=== PATIENT | male | born 1970 | race Caucasian/White ===

== ENCOUNTER 2016-10-17 16:17 | Emergency (ER) | payer MEDICAID ==
[2016-10-17 16:47] VITALS: BP 108/70; PULSE 81; RESP 18; TEMP 97.5; O2SAT 92
--- NOTE | 2016-10-17 17:10 | EDPHY ---
H & P Stated Complaint: "im impacted" HPI/ROS: CHIEF COMPLAINT: constipation. Fecal impaction. HISTORY OF PRESENT ILLNESS: One-day of constipation and fecal impaction. He feels that he has stool in the rectal vault but cannot get it out. He has had this in the past year x2. He has no fever or chills. No generalized abdominal pain. No nausea or vomiting. Symptoms were severe enough that he attempted his own digital disimpaction earlier today with minimal results. He feels it is related to taking OxyContin for back pain recently. At time of my examination, he says that he actually had a large bowel movement just after checking in, and has no further complaints. He has no pain at this time. Has no urge to have a bowel movement. He has no nausea or vomiting. He does not want any further workup for examination. He is asking to be discharged home. No other associated complaints or modifying factors past PREVIOUS ABDOMINAL SURGERIES/DIAGNOSES: constipation REVIEW OF SYSTEMS: Ten systems reviewed and are negative unless otherwise noted in the HPI EXAMINATION: General Appearance: Alert, no distress the Head: normocephalic, atraumatic Eyes: Pupils equal and round, no conjunctival pallor or injection ENT, Mouth: Mucous membranes moist Neck: Normal inspection, supple, non-tender Respiratory: no distress or retraction Gastrointestinal: obese. Abdomen is soft and nontender. No tympany. No rigidity. Non-acute abdomen. Back: non-tender, no bony abnormalities Neurological: A&O, nonfocal Skin: Warm and dry, no rash Extremities: Nontender, no pedal edema Psychiatric: Mood and affect normal DIFFERENTIAL DIAGNOSES: Including but not limited to Constipation, fecal impaction, opiate related constipation, chronic pain MDM: 5:00 p.m. constipation with possible fecal impaction that has resolved prior to my examination. Likely stems from his OxyContin use for his chronic pain from his back. He has no complaints of any kind at this time. He did note that he had some blood in the stool after the constipation, but denies any recent bloody stools in general. I informed him that he should return to the ER for any ongoing blood in the stools. Also recommend Mag citrate as we discussed. I also recommend daily Colace or senna for stool softening. follow-up with primary care physician and we will provide GI follow-up for him should he wish to pursue that. Patient is comfortable this plan and discharged home in stable condition ED Precautions: Worsening pain. Fever. Bloody stools. Bloody emesis. Constipation or diarrhea. SUPERVISION: This patient was independently evaluated without the aide of supervising physician. Source: Patient Exam Limitations: No limitations - Personal History Current Tetanus/Diphtheria Vaccine: Unsure Current Tetanus Diphtheria and Acellular Pertussis (TDAP): Unsure - Medical/Surgical History Hx Asthma: No Hx Chronic Respiratory Disease: No Hx Diabetes: Yes Hx Cardiac Disease: Yes Hx Renal Disease: No Hx Cirrhosis: No Hx Alcoholism: No Hx HIV/AIDS: No Hx Splenectomy or Spleen Trauma: No Other PMH: Carpel tunnel surgery 16 Nov, NIDDM, HTN, depression, anxiety, spinal stenosis, neuropathy, Partially Homeless. - Social History Smoking Status: Never smoked Constitutional: Initial Vital Signs Temperature (C) 97.5 F 10/17/16 16:46 Heart Rate 81 10/17/16 16:46 Respiratory Rate 18 10/17/16 16:46 Blood Pressure 108/70 10/17/16 16:46 O2 Sat (%) 92 10/17/16 16:46 O2 Delivery Mode Room Air Allergies/Adverse Reactions: latex [Latex] Allergy (Mild, Verified 03/10/16 14:26) Home Medications: Medication Instructions Recorded Aspirin [Aspir 81] 81 mg PO DAILY 02/08/12 Atenolol [Tenormin 25 mg (RX)] 25 mg PO DAILY 02/08/12 Glipizide [Glipizide 5 mg (RX)] 5 mg PO DAILY 02/08/12 Lisinopril [Zestril 10 mg (RX)] 20 mg PO DAILY 02/08/12 Metformin HCl [Metformin HCl 1000 1,000 mg PO BID 02/08/12 mg] Sertraline HCl [Zoloft] 25 mg PO DAILY 02/08/12 clonAZEPAM [Klonopin] 0.5 mg PO DAILY 02/08/12 Oxycodone Ir 5 - 10 mg PO TID PRN 09/16/15 Levemir 25 units SQ BID 03/10/16 oxyCODONE IR [Oxycodone Ir (*)] 5 mg PO Q4-6PRN PRN #30 tab 08/30/16 Departure - Departure Disposition: Home, Routine, Self-Care Clinical Impression: Constipation Qualifiers: Qualifier Code: (K59.00) Constipation, unspecified Condition: Good Instructions: Irritable Bowel Syndrome (ED), Constipation (ED), High Fiber Diet (ED), Fleet Enema (ED) Additional Instructions: follow-up with primary care physician and/or GI specialist. Recommend 1 bottle of magnesium citrate tonight. They recommend repeat after 4 hours if no bowel movement and then recommend Colace [id number] daily as discussed. Return to the ER for worsening pain or constipation. Return to the ER for bleeding, fever, chills or generalized abdominal pain Referrals: Crystal Gamez MD [Primary Care Provider] - As per Instructions Ignacio Rhodes MD [Medical Doctor] - As per Instructions
== END 2016-10-17 17:17 | disposition home or self-care (01) ==
DX: K59.00 Constipation, unspecified (principal); I10 Essential (primary) hypertension; E11.9 Type 2 diabetes mellitus without complications; Z79.82 Long term (current) use of aspirin; Z91.040 Latex allergy status

== ENCOUNTER 2016-10-22 12:19 | Emergency (ER) | payer MEDICAID ==
[2016-10-22 12:28] VITALS: BP 140/99; PULSE 76; RESP 16; TEMP 97.7; O2SAT 92
--- NOTE | 2016-10-22 13:16 | EDPHY ---
H & P Stated Complaint: R thumb injury Time Seen by Provider: 10/22/16 13:08 HPI/ROS: CHIEF COMPLAINT: Right thumb tenderness HISTORY OF PRESENT ILLNESS: 46-year-old male presents emergency department complaining of right thumb pain. Patient was seen at [facility] yesterday, diagnosed with a felon, had it incised and drained. Patient is taking Bactrim, this morning was his 2nd dose. He was seen the day before that for paronychia in this same thumb and started on Keflex. He has stopped the Keflex and is only taking Bactrim per their recommendations. He had a follow-up appointment with them this morning, reports the pad of his thumb less tender though they were concerned of a tenosynovitis and sent him to the hospital for an MRI. Patient is an insulin-dependent diabetic. He denies fevers or chills, no nausea or vomiting. He is [id number]. REVIEW OF SYSTEMS: A comprehensive 10 point review of systems is otherwise negative aside from elements mentioned in the history of present illness. Source: Patient Exam Limitations: No limitations - Personal History Current Tetanus/Diphtheria Vaccine: Unsure Current Tetanus Diphtheria and Acellular Pertussis (TDAP): Unsure - Medical/Surgical History Hx Asthma: No Hx Chronic Respiratory Disease: No Hx Diabetes: Yes Hx Cardiac Disease: Yes Hx Renal Disease: No Hx Cirrhosis: No Hx Alcoholism: No Hx HIV/AIDS: No Hx Splenectomy or Spleen Trauma: No Other PMH: Carpel tunnel surgery 16 Nov, IDDM, HTN, depression, anxiety, spinal stenosis, neuropathy, Partially Homeless. - Social History Smoking Status: Never smoked - Physical Exam Exam: GEN: Awake, alert, oriented, no acute distress RESP: nl resp effort MSK: Right thumb with had of thumb palmar aspect with swelling and tenderness and erythema, incision to lateral thumb with no drainage, no Kanaval signs. Mild tenderness to palpation to dorsal aspect of MCP joint, no lymphangitic streaking, no wrist tenderness. Sensation intact to light touch, cap refill less than 2 seconds. Constitutional: Initial Vital Signs Temperature (C) 36.5 C 10/22/16 12:27 Heart Rate 76 10/22/16 12:27 Respiratory Rate 16 10/22/16 12:27 Blood Pressure 140/99 H 10/22/16 12:27 O2 Sat (%) 92 10/22/16 12:27 O2 Delivery Mode Room Air Allergies/Adverse Reactions: latex [Latex] Allergy (Mild, Verified 03/10/16 14:26) Home Medications: Medication Instructions Recorded Aspirin [Aspir 81] 81 mg PO DAILY 02/08/12 Atenolol [Tenormin 25 mg (RX)] 25 mg PO DAILY 02/08/12 Glipizide [Glipizide 5 mg (RX)] 5 mg PO DAILY 02/08/12 Lisinopril [Zestril 10 mg (RX)] 20 mg PO DAILY 02/08/12 Metformin HCl [Metformin HCl 1000 1,000 mg PO BID 02/08/12 mg] Sertraline HCl [Zoloft] 25 mg PO DAILY 02/08/12 clonAZEPAM [Klonopin] 0.5 mg PO DAILY 02/08/12 Oxycodone Ir 5 - 10 mg PO TID PRN 09/16/15 Levemir 25 units SQ BID 03/10/16 oxyCODONE IR [Oxycodone Ir (*)] 5 mg PO Q4-6PRN PRN #30 tab 08/30/16 Medical Decision Making - Diagnostics Imaging: MRI right thumb- Impression: Mild cellulitis distal thumb. No evidence for an abscess or osteomyelitis. Minimal peritendinitis of the extensor and flexor tendon, without tenosynovitis. Results called and discussed with Clayton PetersPMalvin, at October 22, 2016 at 1511 hours. Dictated By: Abilio Armando MD ED Course/Re-evaluation: 46-year-old male presents with a felon to his right thumb that had an incision and drainage yesterday. His primary care doctor sent him here for an MRI concern for tenosynovitis. Patient denies fevers or chills, no extending redness beyond tip of finger. MRI ordered shows no evidence of tenosynovitis, no abscess. I have recommended the patient soak this finger 5 times a day for 10 minutes, take his antibiotics as prescribed and follow up at [facility] for re-evaluation tomorrow. He is given strict return precautions for worsening symptoms. Differential Diagnosis: Diagnosis considered but not limited to felon, paronychia, tenosynovitis, septic joint Departure - Departure Disposition: Home, Routine, Self-Care Clinical Impression: Right thumb felon Condition: Good Instructions: Cellulitis (ED), Incision and Drainage (ED) Additional Instructions: Soak your right thumb in warm water 5 times a day for 5-10 minutes, continue taking your antibiotics as prescribed, follow up at [facility] tomorrow for wound recheck. Return to the emergency department for worsening symptoms, increased pain and swelling, spreading of redness, any other questions or concerns. Referrals: Crystal Gamez MD [Primary Care Provider] - As per Instructions
--- NOTE | 2016-10-22 15:23 | MR ---
MRI Upper Extremity, Right Thumb History: Abscess in pad of the thumb drained yesterday. Swelling. Evaluate for tenosynovitis. Technique: MRI was performed of the right hand, with attention to the right thumb, using a 3.0 Yasmin MRI system. Sagittal, coronal, and axial imaging was obtained with standard imaging sequences. Findings: Mild edema is seen in the pad of the distal thumb. Minimal peritendinous edema is seen of the extensor and flexor tendon of the thumb. No evidence for fluid distention of the tendon sheath. Mild abnormal signal intensity is seen in the flexor tendon more proximally at the level of the met acarpal, which could represent mild tendinopathy. No attenuation or edema. No evidence for an absce ss. No evidence for osteomyelitis. No evidence for a joint effusion. No significant bone marrow ab normality is visualized. Impression: Mild cellulitis distal thumb. No evidence for an abscess or osteomyelitis. Minimal per itendinitis of the extensor and flexor tendon, without tenosynovitis. Results called and discussed with Aurora Cronin N.P., at October 22, 2016 at 1511 hours.
== END 2016-10-22 15:29 | disposition home or self-care (01) ==
DX: L03.011 Cellulitis of right finger (principal); E11.9 Type 2 diabetes mellitus without complications; I10 Essential (primary) hypertension; Z91.040 Latex allergy status; Z79.82 Long term (current) use of aspirin

== ENCOUNTER 2016-12-15 16:25 | Emergency (ER) | payer MEDICAID ==
[2016-12-15 16:38] VITALS: RESP 18
--- NOTE | 2016-12-15 18:08 | EDPHY ---
H & P Time Seen by Provider: 12/15/16 17:53 HPI/ROS: CHIEF COMPLAINT: " [place] very warm" HISTORY OF PRESENT ILLNESS: This 46-year-old man usually sleeps in pretty late and woke up at 11:30 a.m. and took his usual medications including his diabetes medications. Of note he had esophageal dilatation about a year and half ago. He felt like the pills did not go down right away and got stuck but then finally passed. He went back to sleep but then around 3:00 p.m. he was sitting at his desk at a computer when he felt flushed sweaty and warm for about 10 or 15 minutes. Symptoms completely resolved, he called the [facility] nurse line, they advised him to come here for further evaluation. Of note he had some question about aspirating his medications but felt like they did eventually go down into his stomach and does not have at this time of foreign body sensation in his esophagus, has not been coughing, is not short of breath. No choking. REVIEW OF SYSTEMS: Eye: no change in vision ENT: no sore throat Cardiac: no chest pain or syncope Pulmonary: HPI Abdomen: no vomiting, diarrhea, abdominal pain Musculoskeletal: no back pain Skin: no rash Neuro: no headache Constitutional: HPI, no chills : no urinary symptoms The patient has had significant depression increased sleeping for 1 year, his father 2 and half years ago any his homeless and is having financial troubles. Denies suicidal ideation. A comprehensive 10 point review of systems is otherwise negative aside from elements mentioned in the history of present illness. PAST MEDICAL HISTORY: Includes carpal tunnel, diabetes, hypertension, depression and anxiety, spinal stenosis. Social history: Homeless, no alcohol. General Appearance: Alert and conversant, cooperative. Eyes: No scleral icterus. ENT, Mouth: Normal mucous membranes. Respiratory: Normal respiratory effort, breath sounds equal, lungs are clear to auscultation. Cardiovascular: Regular rate and rhythm. Gastrointestinal: Abdomen is soft and non tender. Neurological: Alert and oriented x3. Normally conversant. Face symmetric, normal movement and sensation in all extremities. Skin: Warm and dry, no rashes. Musculoskeletal: No peripheral edema and no joint swelling. Psychiatric: Not agitated. Emergency Department course/MDM: I think it is most likely this patient had a vasovagal episode at home. His symptoms have completely resolved. His lungs are normal, his vital signs are unremarkable and he does not have any coughing. I think it is unlikely aspirated or has a retained foreign body in esophagus. Glucose is 300 does not appear hypoglycemic now. Smoking Status: Former smoker Constitutional: Initial Vital Signs Temperature (C) 36.4 C 12/15/16 16:33 Heart Rate 67 12/15/16 16:33 Respiratory Rate 18 12/15/16 16:33 Blood Pressure 110/68 12/15/16 16:33 O2 Sat (%) 97 12/15/16 16:33 O2 Delivery Mode Room Air Allergies/Adverse Reactions: sulfamethoxazole [From Bactrim] Allergy (Severe, Verified 12/15/16 16:39) Hives trimethoprim [From Bactrim] Allergy (Severe, Verified 12/15/16 16:39) Hives latex [Latex] Allergy (Mild, Verified 12/15/16 16:38) Itching Home Medications: Medication Instructions Recorded Aspirin [Aspir 81] 81 mg PO DAILY 02/08/12 Atenolol [Tenormin 25 mg (RX)] 25 mg PO DAILY 02/08/12 Glipizide [Glipizide 5 mg (RX)] 5 mg PO DAILY 02/08/12 Lisinopril [Zestril 10 mg (RX)] 20 mg PO DAILY 02/08/12 Metformin HCl [Metformin HCl 1000 1,000 mg PO BID 02/08/12 mg] Sertraline HCl [Zoloft] 25 mg PO DAILY 02/08/12 clonAZEPAM [Klonopin] 0.5 mg PO DAILY 02/08/12 Oxycodone Ir 5 - 10 mg PO TID PRN 09/16/15 Levemir 25 units SQ BID 03/10/16 oxyCODONE IR [Oxycodone Ir (*)] 5 mg PO Q4-6PRN PRN #30 tab 08/30/16 Medical Decision Making - Data Points Laboratory Results: 12/15/16 18:10 POC Hgb 14.6 gm/dL gm/dL (14.5-17.3) POC Hct 43 % % (42.8-50.6) POC Sodium 138 mEq/L mEq/L (134-144) POC Potassium 4.2 mEq/L mEq/L (3.3-5.0) POC Chloride 101 mEq/L mEq/L (96-108) POC BUN 20 mg/dL mg/dL (7-23) POC Creatinine 0.5 mg/dL L mg/dL (0.8-1.5) POC Glucose 300 mg/dL H mg/dL (70-100) Point of Care Test Results: 12/15/16 18:10 POC Sodium 138 POC Potassium 4.2 POC Chloride 101 POC BUN 20 POC Creatinine 0.5 L POC Glucose 300 H Departure - Departure Disposition: Home, Routine, Self-Care Clinical Impression: Vasovagal episode Condition: Good Instructions: Near Syncope (ED) Referrals: Crystal Gamez MD [Primary Care Provider] - As per Instructions
[2016-12-15 18:37] VITALS: BP 113/64; PULSE 64; TEMP 97.9; O2SAT 91
== END 2016-12-15 18:37 | disposition home or self-care (01) ==
DX: R55 Syncope and collapse (principal); E11.9 Type 2 diabetes mellitus without complications; I10 Essential (primary) hypertension; Z87.891 Personal history of nicotine dependence; Z79.82 Long term (current) use of aspirin; Z79.84 Long term (current) use of oral hypoglycemic drugs; Z91.040 Latex allergy status
CPT/HCPCS: 82947-QW

== ENCOUNTER 2017-03-21 03:13 | Emergency (ER) | payer MEDICAID ==
[2017-03-21 03:26] VITALS: BP 136/83; PULSE 73; RESP 18; TEMP 97.3; O2SAT 94
--- NOTE | 2017-03-21 03:30 | EDPHY ---
H & P Stated Complaint: pt c/o left leg pain x1 week, bruise to abd x3 days no trauma HPI/ROS: HPI CHIEF COMPLAINT: Left leg pain, bruised abdomen HISTORY OF PRESENT ILLNESS: This patient 46-year-old male significant past medical history for carpal tunnel syndrome, diabetes, hypertension, depression, spinal stenosis, takes chronic opioids, presents emergency room with left leg pain x1 week, atraumatic, as well as a bruise to the left lower abdomen. Does not remember any trauma. He denies abdominal pain. Denies chest pain or shortness of breath. Denies remember injuring his leg or his abdominal wall. Denies falling. Decided come the emergency room tonight as he has been thinking about his bruise on his lower abdomen and having left leg pain for 1 week. Started to worry him. He decided come here for evaluation. He tells me is chronic pain takes chronic opioids, chronic leg pain. No new injury. No abdominal pain. Past Medical History: Carpal tunnel syndrome, diabetes, hypertension, depression , spinal stenosis, takes chronic opioids Past Surgical History: No recent surgery Social History: Denies daily use of drugs alcohol tobacco Family History: Noncontributory ROS REVIEW OF SYSTEMS: A comprehensive 10 point review of systems is otherwise negative aside from elements mentioned in the history of present illness. Exam Constitutional appears well nontoxic, triage nursing summary reviewed, vital signs reviewed, awake/alert. Eyes normal conjunctivae and sclera, EOMI, PERRLA. HENT normal inspection, atraumatic, moist mucus membranes, no epistaxis, neck supple/ no meningismus, no raccoon eyes. Respiratory clear to auscultation bilaterally, normal breath sounds, no respiratory distress, no wheezing. Cardiovascular rate normal, regular rhythm, no murmur, no edema, distal pulses normal. Gastrointestinal soft, non-tender, no rebound, no guarding, normal bowel sounds, no distension, no pulsatile mass. Genitourinary no CVA tenderness. Musculoskeletal no midline vertebral tenderness, full range of motion, no calf swelling, no tenderness of extremities, no meningismus, good pulses, neurovascularly intact. Left lower extremity. Neurovascular intact warm extremity no swelling. No pain with palpation. States he has intermittent thigh pain left lateral side. Chronic. No new injury. No deformity noted. Skin left lower abdomen there is an area 3 cm x 3 cm of ecchymosis purple in color, no hematoma, no tenderness, abdomen soft. pink, warm, & dry, no rash, skin atraumatic. Neurologic awake, alert and oriented x 3, AAOx3, moves all 4 extremities equally, motor intact, sensory intact, CN II-XII intact, normal cerebellar, normal vision, normal speech. Psychiatric normal mood/affect. Heme/Lymph/Immune no lymphadenopathy. Differential Diagnosis: Includes but is not limited to in a particular order musculoskeletal spasm, ecchymosis of the abdominal wall from trauma, chronic pain, leg spasm. Medical Decision Making: Plan for this patient evaluation is unremarkable here in the emergency room is neurovascularly intact left leg. Small area of ecchymosis to the left abdominal wall with no hematoma. It has been present for week. Leg pain for week. No trauma. Recommend Tylenol Motrin. Monitor himself. He has worsening pain or worsening ecchymosis return to the emergency room. I explained is ecchymosis will go away with time middle reabsorbed. He has no leg pain at this time. His leg is neurovascular intact. All think he would benefit from any imaging given that he has atraumatic. And has chronic pain. Source: Patient - Personal History Current Tetanus Diphtheria and Acellular Pertussis (TDAP): Yes Tetanus Vaccine Date: 2016 - Medical/Surgical History Hx Asthma: No Hx Chronic Respiratory Disease: No Hx Diabetes: Yes Hx Cardiac Disease: Yes Hx Renal Disease: No Hx Cirrhosis: No Hx Alcoholism: No Hx HIV/AIDS: No Hx Splenectomy or Spleen Trauma: No Other PMH: Carpel tunnel, diabetes type 2, HTN, depression, anxiety, spinal stenosis, neuropathy, Partially Homeless. - Social History Smoking Status: Former smoker Constitutional: Initial Vital Signs Temperature (C) 36.3 C 03/21/17 03:21 Heart Rate 73 03/21/17 03:21 Respiratory Rate 18 03/21/17 03:21 Blood Pressure 136/83 H 03/21/17 03:21 O2 Sat (%) 94 03/21/17 03:21 O2 Delivery Mode Room Air Allergies/Adverse Reactions: sulfamethoxazole [From Bactrim] Allergy (Severe, Verified 12/15/16 16:39) Hives trimethoprim [From Bactrim] Allergy (Severe, Verified 12/15/16 16:39) Hives latex [Latex] Allergy (Mild, Verified 12/15/16 16:38) Itching acetaminophen [From Tylenol] Allergy (Verified 03/21/17 03:20) Home Medications: Medication Instructions Recorded Aspirin [Aspir 81] 81 mg PO DAILY 02/08/12 Atenolol [Tenormin 25 mg (RX)] 25 mg PO DAILY 02/08/12 Glipizide [Glipizide 5 mg (RX)] 5 mg PO DAILY 02/08/12 Lisinopril [Zestril 10 mg (RX)] 20 mg PO DAILY 02/08/12 Metformin HCl [Metformin HCl 1000 1,000 mg PO BID 02/08/12 mg] Sertraline HCl [Zoloft] 25 mg PO DAILY 02/08/12 clonAZEPAM [Klonopin] 0.5 mg PO DAILY 02/08/12 Levemir 25 units SQ BID 03/10/16 Departure - Departure Disposition: Home, Routine, Self-Care Clinical Impression: Superficial bruising of abdominal wall Qualifiers: Encounter type: initial encounter Qualified Code(s): S30.1XXA - Contusion of abdominal wall, initial encounter Condition: Good Instructions: Ecchymosis (ED) Additional Instructions: 1.Return emergency room if you have any worsening symptoms questions or concerns. Referrals: Crystal Gamez MD [Primary Care Provider] - As per Instructions
== END 2017-03-21 03:45 | disposition home or self-care (01) ==
DX: S30.1XXA Contusion of abdominal wall, initial encounter (principal); E11.9 Type 2 diabetes mellitus without complications; I10 Essential (primary) hypertension; Z79.82 Long term (current) use of aspirin; Z87.891 Personal history of nicotine dependence; Z91.040 Latex allergy status; Z79.84 Long term (current) use of oral hypoglycemic drugs; X58.XXXA Exposure to other specified factors, initial encounter

== ENCOUNTER 2017-05-30 18:02 | Emergency (ER) | payer MEDICAID ==
[2017-05-30 18:13] VITALS: BP 111/71; PULSE 76; RESP 18; TEMP 97.7; O2SAT 91
--- NOTE | 2017-05-30 18:32 | EDPHY ---
H & P Time Seen by Provider: 05/30/17 18:25 HPI/ROS: CHIEF COMPLAINT: HISTORY OF PRESENT ILLNESS: The patient is a 46-year-old male presenting with a red bump inferior to the umbilicus. The bump has increased in pain, swelling, and redness. He had some associated itchiness with it. The patient has tried warm compresses but continues to have pain and redness. He denies fever, nausea , or vomiting. REVIEW OF SYSTEMS: A comprehensive 10 point review of systems is otherwise negative aside from elements mentioned in the history of present illness. Past Medical/Surgical History: DM2, HTN, Depression, Anxiety, Spinal stenosis, Neuropathy. Social History: Currently homeless. Smoking Status: Former smoker Physical Exam: General Appearance: Alert, pleasant Eyes: Pupils equal and round ENT, Mouth: Mucous membranes moist Gastrointestinal: Abd soft, NT x for area of erythema and tenderness inferior to the umbilicus, approximately 1cm in diameter Neurological: A&O, nonfocal, normal gait Skin: Warm and dry Psychiatric: Mood and affect normal Constitutional: Initial Vital Signs Temperature (C) 36.5 C 05/30/17 18:09 Heart Rate 76 05/30/17 18:09 Respiratory Rate 18 05/30/17 18:09 Blood Pressure 111/71 05/30/17 18:09 O2 Sat (%) 91 L 05/30/17 18:09 O2 Delivery Mode Room Air Allergies/Adverse Reactions: sulfamethoxazole [From Bactrim] Allergy (Severe, Verified 05/30/17 18:13) Hives trimethoprim [From Bactrim] Allergy (Severe, Verified 05/30/17 18:13) Hives latex [Latex] Allergy (Mild, Verified 05/30/17 18:13) Itching acetaminophen [From Tylenol] Allergy (Verified 05/30/17 18:13) Home Medications: Medication Instructions Recorded Aspirin [Aspir 81] 81 mg PO DAILY 02/08/12 Atenolol [Tenormin 25 mg (RX)] 25 mg PO DAILY 02/08/12 Glipizide [Glipizide 5 mg (RX)] 5 mg PO DAILY 02/08/12 Lisinopril [Zestril 10 mg (RX)] 20 mg PO DAILY 02/08/12 Metformin HCl [Metformin HCl 1000 1,000 mg PO BID 05/28/12 mg] Sertraline HCl [Zoloft] 25 mg PO DAILY 02/08/12 clonAZEPAM [Klonopin] 0.5 mg PO DAILY 02/08/12 Levemir 25 units SQ BID 03/10/16 Cephalexin [Keflex (*)] 500 mg PO TID #30 cap 05/30/17 Medical Decision Making ED Course/Re-evaluation: Patient presents with folliculitis and possible abscess inferior to the umbilicus. The patient's infection was located on the body part. Risks, benefits, alternatives discussed with the patient and consent obtained. The area was prepped and draped in sterile fashion. The patient received local anesthesia with 1% lidocaine with epinephrine. The area was incised with a #11 blade, no purulent drainage was expressed. The patient tolerated the procedure well. The procedure was performed by myself. I am going to treat the folliculitis with Keflex. I instructed the patient to clean the area with soap and water bid. - Data Points Medications Given: Discontinued Medications Cephalexin HCl (Keflex) 500 mg PO EDNOW ONE PRN Reason: Protocol Stop: 05/30/17 18:49 Last Admin: 05/30/17 18:57 Dose: 500 mg Departure - Departure Disposition: Home, Routine, Self-Care Clinical Impression: Folliculitis Condition: Good Instructions: Folliculitis (ED) Additional Instructions: Keep the area clean. Wash it with soap and water. Return to the emergency department if you develop signs of infection including fever, increased redness , swelling, warmth, or drainage. Followup with your primary care physician as needed. Referrals: Crystal Gamez MD [Primary Care Provider] - As per Instructions Prescriptions: Cephalexin [Keflex (*)] 500 mg PO TID #30 cap Report Scribed for: Cheli Gillis Report Scribed by: Karla Keen Date of Report: 05/30/17 Time of Report: 18:32 Physician Review and Approval Statement: 05/30/17 18:32 Portions of this note were transcribed by a medical reimbursement specialist. I personally performed the history, physical exam, and medical decision-making; and confirmed the accuracy of the information in the transcribed note.
[2017-05-30] MEDS ORDERED: CEPHALEXIN 500 MG CAP PO ONE (18:48)
== END 2017-05-30 19:02 | disposition home or self-care (01) ==
PROC: 0H97XZZ Drainage of Abdomen Skin, External Approach (ICD-10-PCS; principal; 2017-05-30)
DX: L73.9 Follicular disorder, unspecified (principal); E11.9 Type 2 diabetes mellitus without complications; I10 Essential (primary) hypertension; Z79.82 Long term (current) use of aspirin; Z79.84 Long term (current) use of oral hypoglycemic drugs; Z87.891 Personal history of nicotine dependence

== ENCOUNTER 2018-10-21 22:43 | Emergency (ER) | payer MEDICAID ==
[2018-10-22 00:26] LABS: PLATELET COUNT 242 10^3/uL (150-400)
[2018-10-22 00:34] VITALS: BP 119/69
--- NOTE | 2018-10-22 00:58 | EDPHY ---
H & P Stated Complaint: CP/SOB SINCE 1529, POSSIBLE EXPOSURE TO CHLORINE - Personal History Current Tetanus Diphtheria and Acellular Pertussis (TDAP): Yes Tetanus Vaccine Date: 2016 - Medical/Surgical History Hx Asthma: No Hx Chronic Respiratory Disease: No Hx Diabetes: Yes Hx Cardiac Disease: Yes Hx Renal Disease: No Hx Cirrhosis: No Hx Alcoholism: No Hx HIV/AIDS: No Hx Splenectomy or Spleen Trauma: No Other PMH: Carpel tunnel, diabetes type 2, HTN, depression, anxiety, spinal stenosis, neuropathy, Partially Homeless. - Social History Smoking Status: Former smoker Time Seen by Provider: 10/21/18 23:10 HPI/ROS: Chief complaint: Chest discomfort History of present illness: This is a 48-year-old male who presents to the emergency department for chest discomfort. Patient states he was cleaning a basement. He was using warm water with bleach. Is a bleed smell was irritating he took some pressure limited and squeezed into the water to given the limited sent. He was exposed to this for number of hours. He has slowly started to develop some chest discomfort. Of note he did not use any ammonia products such as [place]. On evaluation he just states he feels a little unwell but other symptoms have resolved. No fever. No headache or dizziness. No current chest pain or trouble breathing. Review of systems: A 10 point review of systems was obtained and other than described above was negative (Trev Wooten) - Physical Exam Exam: General Appearance: Alert, nontoxic. Eyes: Pupils equal and round no pallor or injection. ENT, Mouth: Mucous membranes moist. Respiratory: There are no retractions, lungs are clear to auscultation. Cardiovascular: Regular rate and rhythm. Gastrointestinal: Abdomen is soft and non tender, no masses, bowel sounds normal. Neurological: Alert and oriented x4. Strength and sensation intact and symmetrical. Skin: Warm and dry, no rashes. Musculoskeletal: Neck is supple non tender. Extremities are symmetrical, full range of motion. Psychiatric: Patient is oriented X 3, there is no agitation. (Trev Wooten) Constitutional: Initial Vital Signs Temperature (C) 37.1 C 10/21/18 22:48 Heart Rate 94 10/21/18 22:48 Respiratory Rate 18 10/21/18 22:48 Blood Pressure 112/67 10/21/18 22:48 O2 Sat (%) 95 10/21/18 22:48 O2 Delivery Mode Room Air Allergies/Adverse Reactions: sulfamethoxazole [From Bactrim] Allergy (Severe, Verified 05/30/17 18:13) Hives trimethoprim [From Bactrim] Allergy (Severe, Verified 05/30/17 18:13) Hives latex [Latex] Allergy (Mild, Verified 05/30/17 18:13) Itching acetaminophen [From Tylenol] Allergy (Verified 05/30/17 18:13) Home Medications: Medication Instructions Recorded Aspirin [Aspir 81] 81 mg PO DAILY 02/08/12 Atenolol [Tenormin 25 mg (RX)] 25 mg PO DAILY 02/08/12 Lisinopril [Zestril 10 mg (RX)] 20 mg PO DAILY 02/08/12 Metformin HCl [Metformin HCl 1000 1,000 mg PO BID 02/08/12 mg] Sertraline HCl [Zoloft] 25 mg PO DAILY 02/08/12 clonAZEPAM [Klonopin] 0.5 mg PO DAILY 02/08/12 Levemir 25 units SQ BID 03/10/16 VYVANSE 10/21/18 Medical Decision Making - Diagnostics Imaging: I viewed and interpreted images myself ED Course/Re-evaluation: Patient is discussed with my secondary supervising physician Dr. Renate Swann. Patient presents to the emergency department reporting he is feeling unwell. He had some minor chest discomfort after being exposed to bleach with fresh lemon he had mixed into it that was diluted in water that he was using to clean. On my evaluation he is nontoxic. Vital signs are stable. Physical exam is benign. Evaluation is largely unremarkable. He does have a leukocytosis of unclear etiology. Blood sugars are elevated, he states his blood sugars are normally elevated, he reports he ate sugary food before he came to the emergency room this evening and has not taken his evening diabetic medication. He is not concerned about these numbers. He is discharged home. He is asked to follow up with his primary care doctor for recheck. Return precautions are given. He has voiced understanding and agreement with plan. (Trev Wooten) PHYSICIAN DOCUMENTATION: The patient was evaluated and managed by the Physician [employer]. My co- signature indicates that I have reviewed this chart and I agree with the findings and plan of care as documented. I am the secondary supervising physician. (Renate Swann) Differential Diagnosis: Included but not limited to chemical exposure, hypoxia, cardiac disturbance, pulmonary (Trev Wooten) - Data Points Laboratory Results: Laboratory Results 10/22/18 00:02 10/21/18 23:35 Point of Care Test Results: Chemistry 10/21/18 23:36 POC Troponin I 0.00 ng/mL ng/mL (0.00-0.08) Departure - Departure Disposition: Home, Routine, Self-Care Clinical Impression: Inhalation injury Condition: Good Instructions: Pneumonitis (ED) Additional Instructions: Follow-up with your primary care doctor on Wednesday for recheck Please take your medications including your diabetic medications when you get home. Monitor your blood sugars well. If symptoms worsen or new symptoms develop return to the emergency room for recheck Referrals: Crystal Gamez MD [Primary Care Provider] - As per Instructions
--- NOTE | 2018-10-24 03:26 | CPEKG ---
Test Reason : OPEN Blood Pressure : / mmHG Vent. Rate : 082 BPM Atrial Rate : 082 BPM P-R Int : 156 ms QRS Dur : 102 ms QT Int : 380 ms P-R-T Axes : 049 041 016 degrees QTc Int : 444 ms Sinus rhythm Probable left atrial enlargement Anteroseptal infarct, age indeterminate Confirmed by Renate Swann ([id number]) on 10/24/2018 3:25:52 AM Referred By: Renate Swann Confirmed By:Renate Swann
== END 2018-10-22 01:14 | disposition home or self-care (01) ==
DX: T59.91XA Toxic effect of unspecified gases, fumes and vapors, accidental (unintentional), initial encounter (principal)
CPT/HCPCS: 84484-ER

== ENCOUNTER 2019-02-20 23:54 | Emergency (ER) | payer MEDICAID | END 2019-02-21 00:33 | disposition home or self-care (01) ==